=== PATIENT | female | born 1960 | race Caucasian/White ===

== ENCOUNTER → 2019-02-24 19:59 | Outpatient (REF) | payer OTHER, MEDICAID, SELFPAY | LOC: LAB 19:59 | PROVIDERS: Visit Provider Physician Assistant Medical | DX: K21.9 Gastro-esophageal reflux disease without esophagitis (principal) | CPT/HCPCS: 83013 ==

== ENCOUNTER → 2023-02-04 17:09 | Outpatient (CLI) | payer OTHER, MEDICAID, SELFPAY ==
--- NOTE | 2023-02-04 17:18 | DI.RAD.S_ITS ---
PROCEDURE: XR LUMBAR SPINE MIN 4V INDICATIONS: BACK PAIN TECHNIQUE: 5 views of the lumbar spine were acquired, including bilateral oblique views. COMPARISON: None. FINDINGS: Bones: 5 nonrib-bearing vertebrae are present. There is trace retrolisthesis of L5 on S1. Moderate to severe disc and foraminal narrowing are noted L5-S1, [id number] disc space narrowing is present at multiple levels of the lumbar spine. No vertebral body compression fractures. No suspicious bony lesions. Soft tissues: Overlying bowel gas pattern is normal. No suspicious soft tissue calcifications. Oblique images: No pars defects. IMPRESSION: Degenerative changes most notable L5-S1. In Dom go Dictated by: Jyothi Lau M.D. on 02/04/2023 at 17:57 Approved by: Jyothi Lau M.D. on 02/04/2023 at 17:58
== END ==
PROVIDERS: Referring Provider Physical Medicine & Rehabilitation; Visit Provider Physical Medicine & Rehabilitation
DX: M47.817 Spondylosis without myelopathy or radiculopathy, lumbosacral region (principal); M54.9 Dorsalgia, unspecified
CPT/HCPCS: 72110

== ENCOUNTER → 2023-02-04 17:14 | Outpatient (CLI) | payer OTHER, MEDICAID, SELFPAY ==
--- NOTE | 2023-02-04 17:15 | DI.US.S_ITS ---
LIMITED ULTRASOUND OF RIGHT BREAST AND AXILLA: 02/04/2023 CLINICAL: RIGHT AXILLA SWELLING. Comparison is made to exam dated: 11/10/2008 mammogram - [facility]. Color flow and real-time ultrasound of the right breast axilla were performed. Rain scale images of the real-time examination were reviewed. No significant abnormalities were seen sonographically in the right axilla. No DVT in the right axillary vein. IMPRESSION: NEGATIVE There is no sonographic evidence of malignancy. There is no abnormality seen in the right axilla to correspond with the area of clinical concern, however, clinical correlation and clinical followup are recommended. Screening mammogram is recommended now, unless obtained elsewhere within the past year. This exam was interpreted at Station ID: [id number]. Electronically Signed By: Nain Cristina M.D. lc/:02/11/2023 11:52:35 letter sent: Clinical Evaluation Ultrasound BI-RADS: 1 Negative
== END ==
PROVIDERS: Referring Provider Physician Assistant Medical; Visit Provider Physician Assistant Medical
DX: R60.0 Localized edema (principal); M47.817 Spondylosis without myelopathy or radiculopathy, lumbosacral region; M47.816 Spondylosis without myelopathy or radiculopathy, lumbar region; M54.9 Dorsalgia, unspecified; Z98.890 Other specified postprocedural states
CPT/HCPCS: 72110; 76882; 99215

== ENCOUNTER → 2024-04-13 13:15 | Outpatient (CLI) | payer MEDICARE, MEDICAID, SELFPAY ==
--- NOTE | 2024-04-13 13:21 | DI.US.S_ITS ---
ULTRASOUND OF RIGHT AXILLA: 04/13/2024 CLINICAL: Right axillary swelling x 1+ yr. Comparison is made to exams dated: 02/04/[address] [facility] and 11/10/2008 mammogram - [facility]. Real-time ultrasound of the right axilla was performed. Rain scale images of the real-time examination were reviewed. No significant abnormalities were seen sonographically in the right axilla. IMPRESSION: NEGATIVE There is no sonographic evidence of malignancy. There is no abnormality seen in the right axilla to correspond with the area of clinical concern, however, clinical correlation and clinical followup are recommended. Screening mammography is recommended, currently due. This exam was interpreted at Station ID: [id number]. Electronically Signed By: Nain Cristina M.D. lc/:04/13/2024 13:59:07 letter sent: Clinical Evaluation Ultrasound BI-RADS: 1 Negative
== END ==
PROVIDERS: PCP Physician Assistant; Referring Provider Physician Assistant; Visit Provider Physician Assistant
DX: R60.0 Localized edema (principal)
CPT/HCPCS: 76882